=== PATIENT | male | born 1955 | race Caucasian/White ===

== ENCOUNTER → 2018-12-25 | Outpatient (CLI) | payer MEDICARE ==
[~2018-12-25] MED LIST: IOHEXOL 180 MG/ML 10 ML VIAL. ONE; METO25TA4 PO; OMEP20TA63 PO; methylPREDNISolone ACETATE 40 MG/ML VIAL. ONE; methylPREDNISolone ACETATE 80 MG/ML VIAL. ONE
--- NOTE | 2018-12-25 22:35 | PAIN ---
DATE OF SERVICE: 12/25/2018 INITIAL CONSULTATION FOR PAIN CLINIC CHIEF COMPLAINT: Low back and left lower extremity pain. HISTORY OF PRESENT ILLNESS: This is a 63-year-old male who presents with history of pain in low back, left leg for about 8 months status post. The patient was doing some work and had some drywall fall on him, which knocked him down and causing some significant pain in the low back and left leg. The patient had had lumbar surgery in 2012 with a L5-S1 diskectomy from the herniation with almost immediate relief. The patient reports he has been doing very well until this recent incident here a few months ago. The patient reports now the pain is across the low back into the left lower extremity with some numbness and tingling in the foot, mostly in the posterior gluteus, lateral thigh, anterior thigh, posterior thigh and calf with numbness and sensation and some ECT fatigability in the left leg with walking. The patient reports it awakens him from sleep about twice a night, does not affect her bowel or bladder control and only flexibility walking on his feet for more than about 20-30 minutes, not using any assistive devices to ambulate such as canes or walkers. The patient rates disability from 0-10, 10 being the worst, is an 8 with family home responsibilities, recreation, social activity, 7 with occupation, 2 with self-care and 4 with life support activities. The patient did have MRI scan of the lumbar spine showing L4-L5, mild broad-based disk bulge, flattening of the ventral thecal sac with mild posterior facet arthropathy, but without significant central spinal stenosis, mild bilateral neural foraminal approach at L5-S1 shows mild broad-based disk bulge, flattening of the ventral thecal sac with no significant central spinal canal stenosis, mild bilateral neural foraminal encroachment at this level as well. PAST MEDICAL HISTORY: Significant for hypertension, arthritis, stroke, alcoholism, cigarette smoking 1 pack a day. PREVIOUS SURGERY: Include lumbar decompression in 2013. CURRENT MEDICATIONS: Include metoprolol and Advil. FAMILY HISTORY: Significant for no major medical problems or conditions that he is aware of. SOCIAL HISTORY: The patient drinks about a pint of alcohol daily, is currently in rehabilitation for alcoholism. The patient smokes about 1/2-1 pack a day of cigarettes and has for the last 20 years. The patient is single. Lives locally by himself in a [place], [place]. REVIEW OF SYSTEMS: The patient's review of systems is positive for those items mentioned in history of present illness. All systems reviewed and otherwise negative. It is complete, full and well documented on the patient's chart. PHYSICAL EXAMINATION: VITAL SIGNS: The patient's blood pressure is 141/92, pulse 77, respirations 16, temperature 98.0 degrees Fahrenheit, height is 6 feet, weight is 164 pounds. GENERAL: The patient is awake, alert, oriented, appropriate, very pleasant demeanor. HEENT: Shows normocephalic, atraumatic. Extraocular movements are intact and symmetrical. Oral cavity: Mucous membranes moist and pink. Dentition is intact. NECK: Shows anterior throat supple without palpable lymphadenopathy noted. Swallow reflex symmetrical. CHEST: Shows normal on inspection. Breath sounds clear to auscultation bilaterally. HEART: Shows S1, S2 clear. No murmurs auscultated. ABDOMEN: Soft, nontender, nondistended. No palpable organomegaly is noted. No rebound or guarding demonstrated. BACK: Shows spine grossly in the midline, normal-appearing cervical lordotic curvature and thoracic kyphotic curvature and lumbar lordotic curvature is slightly flattened with well-healed surgical scarring in the midline noted. Lumbar paraspinous muscle shows symmetrical on inspection, on palpation shows some moderate tenderness diffusely bilaterally, but only diffusely without radiation. The patient has good rotational motion both laterally greater than 10 degrees right and left as well as extension greater than 10 degrees, forward flexion 45 degrees without significant pain reported. No tenderness over the sacrum and sacroiliac regions over the spinous processes with direct palpation. EXTREMITIES: The patient's lower extremities show deep tendon reflexes 1+ in the patellar and tendo calcaneus tendons are equal. Motor exam is approximately 4 on a scale of 5 with left dorsiflexion, extension, quadriceps and hamstring flexion and 5/5 on the right. Peripheral pulses are 1+ posterior tibia. No peripheral edema is noted bilaterally. Lower extremities are warm and dry to touch, equal in color and appearance. Straight leg raising noted to be negative for reproduction of radicular symptoms bilaterally. Gaenslen's and Sawyer's maneuvers are negative bilaterally as well. The patient is able to stand, stand on his toes without significant difficulty or loss of balance, walks with a normal appearing gait for short distance in the office today, does not appear to favour the right or left lower extremity significantly, not using any assistive devices. SKIN: The patient's skin shows warm and dry, good turgor. No edema. No sores, rashes or bruising throughout. IMPRESSION: This is a 63-year-old male with an 8-month history of increasing pain after injury, low back and due to the history of arthritis. PLAN: Options were discussed with the patient including conservative medical management, physical therapies, interventional techniques. He would like to pursue interventional techniques. We discussed a lumbar epidural steroid injection using description as well as anatomical models to describe the procedure. Risks were then discussed including, but not limited to bleeding, infection, possibility of epidural hematoma, subsequent neurological compromise, dural puncture, headaches, spinal cord and/or nerve damage, side effects of steroid medication and poor results regarding pain control. The patient understands and wished to proceed. The patient will return to clinic in approximately 2 weeks for followup. She was counselled on return appointment, activity level and side effects to be aware of. DIAGNOSES: Lumbar radiculopathy with lumbar degenerative disk disease and lumbar post-laminectomy syndrome. PROCEDURE: Lumbar epidural steroid injection, translaminar approach L5-S1 level using C-arm fluoroscopic guidance under sterile prep and drape using local anesthetic. MEDICATION INJECTED: The patient received a total of 120 mg Depo-Medrol plus 10 mL of preservative-free normal saline and 2 mL of contrast. CONDITION AT DISCHARGE: Stable. The patient tolerated procedure well, had no complications. BILLY GODFREY MD DR: COURT/kely JOB#: [id number] / [id number]
== END ==
LOC: PNCL 10:19
PROVIDERS: ATTEND Anesthesiology
DX: M51.16 Intervertebral disc disorders with radiculopathy, lumbar region (principal); M96.1 Postlaminectomy syndrome, not elsewhere classified; I10 Essential (primary) hypertension; F17.210 Nicotine dependence, cigarettes, uncomplicated; Z72.89 Other problems related to lifestyle; Z86.73 Personal history of transient ischemic attack (TIA), and cerebral infarction without residual deficits; Z98.890 Other specified postprocedural states
CPT/HCPCS: 62323; J1030; J1040; Q9965

== ENCOUNTER → 2020-07-25 | Outpatient (CLI) | payer MEDICARE ==
--- NOTE | 2020-07-25 11:30 | PDOC ---
Progress Note - Pain Clinic Date of Service: DOS: DATE: 07/25/20 TIME: 11:28 Diagnosis: Dx: Lumbar radiculopathy degenerative disease lumbar postlaminectomy syndrome History or Present Illness: HPI: 64-year-old male returns to follow-up status post lumbar epidurals or injection x1 last seen December 25, 2018. Patient ports did very well at 95% improvement for about 18 months. Patient reports her pain began to return again over the past 2 months or so but only gradually in the low back on the right side than the left but present to the right lower extremity posterior gluteus posterior thigh occasionally patient reports is aching and dull in the back occasional shooting and stabbing pain in the leg but very rarely patient reports is an 8 on scale 10 is worse over the past week 6 on average 3 its least is a 5 today patient reports beginning to get more noticeable over the past few weeks and has began awaken him from sleep at night initially doing much better with distance walking doing household activities work activities travel with greater ease and comfort without significant increase in pain but the pain now returning. Patient reports no new motor or sensory deficits no new bowel or bladder cons or other complaints. Physical Exam: VS: Blood pressure is 125/89 pulse 91 respirations 16 temperature 98.0 F weight is 163 pounds PE: PHYSICAL EXAMINATION: GENERAL: The patient is awake, alert, oriented, appropriate, very pleasant demeanor HEENT: Shows normocephalic, atraumatic. Extraocular movements are intact and symmetrical. Oral cavity: Mucous membranes moist and pink. NECK: Shows anterior throat supple without palpable lymphadenopathy noted. Swallow reflex symmetrical. CHEST: Shows normal on inspection. Breath sounds are clear bilaterally, no rales rhonchi wheezes auscultated. HEART: Shows S1, S2 clear. No murmurs auscultated. ABDOMEN: Soft, nontender, nondistended, flat. No palpable organomegaly is noted. No rebound or guarding demonstrated. BACK: Shows spine grossly in the midline. Normal-appearing cervical lordotic curvature. There is slightly increased thoracic kyphosis, some minor flattening of the lumbar lordotic curvature. Lumbar paraspinous muscles show symmetrical on inspection, on palpation shows some moderate tenderness diffusely throughout the upper, middle and lower distribution of the paraspinous muscles bilaterally and also into the lower thoracic paraspinous musculature, firm and tender, but without specific trigger points, without radiation of pain. The patient has good rotational motion of the lumbar spine, both laterally as well as extension and flexion without significant difficulty. No tenderness over the spinous processes, sacrum or sacroiliac regions. EXTREMITIES: Lower extremities show deep tendon reflexes 1+ in the patellar and tendo calcaneus tendons. Motor exam is 5 on a scale of 5 with right dorsiflexion, extension, quadriceps and hamstring flexion and 4/5 on the left. Peripheral pulses are 1+ posterior tibial. No peripheral edema is noted bilaterally. Lower extremities are warm and dry to touch, equal in color and appearance. SKIN: Shows warm and dry, good turgor. No edema. No sores, rashes or bruising throughout. Procedure: Procedure: Options were discussed with the patient. Patient chart reviews his current medication regimen updated current review of systems with as well. We will proceed with a lumbar epidural steroid action stage the first in the series with fluoroscopic guidance. Risks were discussed including but not limited to: Bleeding, infection, possibility of epidural hematoma and subsequent neurological compromise, dural puncture, headaches, spinal cord and/or nerve damage, side effects of steroid medication, and poor results regarding pain control. Patient understands and wished to proceed. Patient will return to clinic approximate 2 weeks for follow-up was counseled as to return appointment activity level and side effects to be aware of. Medication Injected: Med Injected: Procedure is lumbar epidural steroid injection under local anesthetic using sterile prep and drape at the L5-S1 level using C-arm fluoroscopic guidance in both AP and lateral views medications injected is 120 mg Depo-Medrol + 10 mL p reservative-free normal saline and 2 mL contrast- condition at discharge is stable patient tolerated procedure well had no complications. Condition at Discharge: Condition at Discharge: Condition at discharge is stable, patient already procedure well and had no complications. BILLY GODFREY MD Jul 25, 2020 11:30
--- NOTE | 2020-07-25 11:31 | PDOC4 ---
PROCEDURE Procedure Patient was consented for lumbar epidural steroid injection. Risks were dis cussed including but not limited to: Bleeding, infection, possibility of epidural hematoma and subsequent neurological compromise, dural puncture, headaches, spinal cord and/or nerve damage, side effects of steroid medication, and poor results regarding pain control. Patient understands and wished to proceed. Procedure is lumbar epidural steroid injection under local anesthetic using sterile prep and drape at the L5-S1 level using C-arm fluoroscopic guidance in both AP and lateral views medications injected is 120 mg Depo-Medrol + 10 mL preservative-free normal saline and 2 mL contrast- condition at discharge is stable patient tolerated procedure well had no complications. BILLY GODFREY MD Jul 25, 2020 11:31
== END | disposition home or self-care (01) ==
LOC: PNCL 10:58
PROVIDERS: ATTEND Anesthesiology
DX: M51.16 Intervertebral disc disorders with radiculopathy, lumbar region (principal); M96.1 Postlaminectomy syndrome, not elsewhere classified; Z79.899 Other long term (current) drug therapy
CPT/HCPCS: 62323; J1030; J1040; Q9965

== ENCOUNTER → 2020-11-07 | Outpatient (CLI) | payer MEDICARE ==
[~2020-11-07] MED LIST changes: -IOHEXOL 180 MG/ML 10 ML VIAL. ONE; -methylPREDNISolone ACETATE 40 MG/ML VIAL. ONE; -methylPREDNISolone ACETATE 80 MG/ML VIAL. ONE
--- NOTE | 2020-11-07 18:10 | RAD ---
MRI of the cervical spine without contrast 11/07/2020 CLINICAL HISTORY: Neck pain. Cervical stenosis. TECHNIQUE: Unenhanced T1-weighted, T2-weighted and inversion recovery sagittal and gradient echo and T2-weighted axial images of the cervical spine were obtained. FINDINGS: Minimal lateral curvature of the cervical spine is seen convex to the right. There is sligh t reversal the normal cervical lordosis. Degenerative signal changes and varying degrees of loss of h eight are seen involving all the disks of the cervical spine. Degenerative signal changes are seen wi thin the marrow surrounding these discs. No area of abnormal signal intensity is seen involving the c ervical spinal cord. At the C2-3 disc space there is a minimal generalized disc bulge. Degenerative changes are seen invol ving the uncovertebral and facet joints, right greater than left. These findings do not result in sig nificant central spinal canal or neural foraminal stenosis. At the C3-4 disc space there is a mild to moderate generalized disc bulge. This is eccentric to the l eft. Degenerative changes are seen involving the uncovertebral and facet joints. These findings effac e the anterior and posterior CSF resulting in mild to moderate central spinal canal stenosis with mil d left-sided cord impingement. Moderate to severe bilateral neural foraminal stenosis is seen. At the C4-5 disc space there is a moderate generalized disc bulge. Superimposed on this disc bulge is a central/right paracentral disc osteophyte complex. This measures 3 mm in AP diameter. Degenerative changes are seen involving the uncovertebral and facet joints bilaterally. These findings efface the anterior and posterior CSF resulting in moderate to severe right greater than left central spinal ca nal stenosis with moderate right greater than left cord impingement. Moderate to severe bilateral freda ral foraminal stenosis is seen. At the C5-6 disc space there is a mild to moderate generalized disc bulge. This is eccentric to the r ight. Degenerative changes are seen involving the uncovertebral and facet joints, right greater than left. These findings result in mild right greater than left central spinal canal stenosis without carley dence of cord impingement. Severe right neural foraminal stenosis is seen. The left neural foramen is patent. At the C6-7 disc space there is a minimal generalized disc bulge. Degenerative changes are seen invol ving the uncovertebral and facet joints, right greater than left. These findings when combined do not result in significant central spinal canal stenosis. Mild to moderate right neural foraminal stenosi s is seen. The left neural foramen is patent. At the C7-T1 disc space there is a minimal generalized disc bulge. Degenerative changes are seen invo lving the facet joints, right greater than left. These findings do not result in significant central spinal canal or neural foraminal stenosis. IMPRESSION: Degenerative changes are seen throughout the cervical spine. These findings result in mil d to moderate central spinal canal stenosis with mild left-sided cord impingement at C3-4, moderate t o severe right greater than left central spinal canal stenosis with moderate right greater than left cord impingement at C4-5 and mild right greater than left central spinal canal stenosis without evide nce of cord impingement at C5-6. Moderate to severe bilateral neural foraminal stenosis is seen at C3 -4 and C4-5. Severe right neural foraminal stenosis is seen at C5-6. Mild to moderate right neural fo raminal stenosis is seen at C6-7. Electronically signed by: Harshil Del Cid MD (11/07/2020 6:08 PM) [id number]
== END ==
LOC: MRI 14:37
PROVIDERS: ATTEND Neurological Surgery
DX: M47.813 Spondylosis without myelopathy or radiculopathy, cervicothoracic region (principal); M48.02 Spinal stenosis, cervical region; M50.23 Other cervical disc displacement, cervicothoracic region
CPT/HCPCS: 72141

== ENCOUNTER → 2020-11-15 | Outpatient (CLI) | payer MEDICARE ==
[2020-11-15 13:15] LABS: BASO % 1 % (0-3); EOS % 1 % (0-3); HEMATOCRIT 31.8 % (39.0-53.0); LYMPH % 21 % (24-48); MEAN CORPUSCULAR HEMOGLOBIN 34 pg (25-35); MEAN CORPUSCULAR HGB CONC 35 g/dL (31-37); MEAN CORPUSCULAR VOLUME 98 fL (79-100); MONO # 0.4 x10^3/uL (0.0-1.1); MONO % 8 % (0-9); NEUT # 3.6 x10^3/uL (1.8-7.7); NEUT % 70 % (31-73); PLATELET COUNT 297 x10^3/uL (140-400); RED BLOOD COUNT 3.24 x10^6/uL (4.30-5.70); RED CELL DISTRIBUTION WIDTH 15.2 % (11.5-14.5); WHITE BLOOD COUNT 5.1 x10^3/uL (4.0-11.0)
[2020-11-15 13:19] LABS: ALBUMIN 2.9 g/dL (3.4-5.0); CALCIUM 8.1 mg/dL (8.5-10.1); CREATININE 0.7 mg/dL (0.7-1.3); GFR 112.5; POTASSIUM 3.3 mmol/L (3.5-5.1); TOTAL BILIRUBIN 0.2 mg/dL (0.2-1.0); TOTAL PROTEIN 5.9 g/dL (6.4-8.2)
== END ==
LOC: SURGPAT 12:23
PROVIDERS: ATTEND Neurological Surgery
DX: Z01.812 Encounter for preprocedural laboratory examination (principal); Z20.822 Contact with and (suspected) exposure to COVID-19; M48.02 Spinal stenosis, cervical region
CPT/HCPCS: 80053; 85025; 87641; U0003; U0005